=== PATIENT | male | born 1955 | race African-American/Black ===

== ENCOUNTER 2018-01-17 10:52 | Emergency (ER) | payer OTHER ==
[~2018-01-17] VITALS: Ht 167.6 cm; Wt 75.0 kg
[2018-01-17] MEDS ORDERED: IOHEXOL 350 MG/ML 10 ML VIAL (for RAD DIAG) IVCONTRAST ONE (10:53)
[2018-01-17 10:58] VITALS: BP 178/89; PULSE 103; RESP 18; TEMP 98.4; O2SAT 100
[2018-01-17] MEDS ORDERED: SODIUM CHLOR 0.9% 1000 ML INJ 1,000 ML IV SCH (11:11)
--- NOTE | 2018-01-17 11:12 | PD ---
HPI Chief Complaint: GI Complaint Time Seen by Provider: 11:06 Travel History International Travel<30 days: No Contact w/Intl Traveler<30days: No Traveled to known affect area: No History of Present Illness HPI 62-year-old male presents emergency department for evaluation of epigastric and left upper quadrant pain worsening over the last 2 days. Patient has had associated nausea and vomiting. He states he is unable to keep anything down. Pain is constant, burning, intermittently sharp. Patient does report alcohol consumption. Denies any recent illnesses, fever, or chills. He has no other symptoms to report. [facility] Past Medical History Medical History: Denies Significant Hx Social History Alcohol Use: Yes Tobacco Use: Yes Allergies-Medications (Allergen,Severity, Reaction): Coded Allergies: No Known Allergies (Unverified , 01/17/18) Reported Meds & Prescriptions Reported Meds & Active Scripts Active Reported Aspirin 81 Mg Chew 81 Mg CHEW DAILY [Gerd Med ] Norvasc (Amlodipine Besylate) 10 Mg Tab 10 Mg PO DAILY Review of Systems Except as stated in HPI: all other systems reviewed are Neg Physical Exam Narrative GENERAL: Well-nourished male patient in no acute distress SKIN: Focused skin assessment warm/dry. HEAD: Atraumatic. Normocephalic. EYES: Pupils equal and round. No scleral icterus. No injection or drainage. ENT: No nasal bleeding or discharge. Mucous membranes pink and moist. NECK: Trachea midline. No JVD. CARDIOVASCULAR: Regular rate and rhythm. No murmur appreciated. RESPIRATORY: No accessory muscle use. Clear to auscultation. Breath sounds equal bilaterally. GASTROINTESTINAL: Abdomen soft, nondistended. Tenderness elicited palpation left upper quadrant. Mild guarding. No rebound tenderness. Hepatic and splenic margins not palpable. MUSCULOSKELETAL: No obvious deformities. No clubbing. No cyanosis. No edema. NEUROLOGICAL: Awake and alert. No obvious cranial nerve deficits. Motor grossly within normal limits. Normal speech. PSYCHIATRIC: Appropriate mood and affect; insight and judgment normal. Data Data Last Documented VS Vital Signs Date Time Temp Pulse Resp B/P (MAP) Pulse Ox O2 Delivery O2 Flow Rate FiO2 01/17/18 13:00 89 17 170/88 (115) 98 Room Air 01/17/18 10:58 98.4 Orders Orders Complete Blood Count With Diff (01/17/18 11:11) Comprehensive Metabolic Panel (01/17/18 11:11) Lipase (01/17/18 11:11) Prothrombin Time / Inr (Pt) (01/17/18 11:11) Act Partial Throm Time (Ptt) (01/17/18 11:11) Urinalysis - C+S If Indicated (01/17/18 11:11) Ct Abd/Pel W Iv Contrast(Rout) (01/17/18 11:11) Iv Access Insert/Monitor (01/17/18 11:11) Ecg Monitoring (01/17/18 11:11) Oximetry (01/17/18 11:11) Ondansetron Inj (Zofran Inj) (01/17/18 11:15) Sodium Chlor 0.9% 1000 Ml Inj (Ns 1000 M (01/17/18 11:11) Sodium Chloride 0.9% Flush (Ns Flush) (01/17/18 11:15) Ketorolac Inj (Toradol Inj) (01/17/18 11:15) Iohexol 350 Inj (Omnipaque 350 Inj) (01/17/18 10:53) Labs Laboratory Tests Test 01/17/18 11:20 01/17/18 13:15 White Blood Count 7.7 TH/MM3 Red Blood Count 4.60 MIL/MM3 Hemoglobin 14.3 GM/DL Hematocrit 41.7 % Mean Corpuscular Volume 90.6 FL Mean Corpuscular Hemoglobin 31.0 PG Mean Corpuscular Hemoglobin Concent 34.2 % Red Cell Distribution Width 15.8 % Platelet Count 151 TH/MM3 Mean Platelet Volume 8.8 FL Neutrophils (%) (Auto) 88.4 % Lymphocytes (%) (Auto) 7.3 % Monocytes (%) (Auto) 4.2 % Eosinophils (%) (Auto) 0.0 % Basophils (%) (Auto) 0.1 % Neutrophils # (Auto) 6.8 TH/MM3 Lymphocytes # (Auto) 0.6 TH/MM3 Monocytes # (Auto) 0.3 TH/MM3 Eosinophils # (Auto) 0.0 TH/MM3 Basophils # (Auto) 0.0 TH/MM3 CBC Comment DIFF FINAL Differential Comment Prothrombin Time 11.0 SEC Prothromb Time International Ratio 1.1 RATIO Activated Partial Thromboplast Time 27.3 SEC Blood Urea Nitrogen 6 MG/DL Creatinine 0.85 MG/DL Random Glucose 181 MG/DL Total Protein 8.9 GM/DL Albumin 3.6 GM/DL Calcium Level 9.2 MG/DL Alkaline Phosphatase 173 U/L Aspartate Amino Transf (AST/SGOT) 56 U/L Alanine Aminotransferase (ALT/SGPT) 42 U/L Total Bilirubin 0.6 MG/DL Sodium Level 135 MEQ/L Potassium Level 3.6 MEQ/L Chloride Level 100 MEQ/L Carbon Dioxide Level 24.9 MEQ/L Anion Gap 10 MEQ/L Estimat Glomerular Filtration Rate 111 ML/MIN Lipase 648 U/L Urine Color LIGHT-YELLOW Urine Turbidity CLEAR Urine pH 6.5 Urine Specific [place] 1.007 Urine Protein TRACE mg/dL Urine Glucose (UA) NEG mg/dL Urine Ketones NEG mg/dL Urine Occult Blood NEG Urine Nitrite NEG Urine Bilirubin NEG Urine Urobilinogen LESS THAN 2.0 MG/DL Urine Leukocyte Esterase NEG Urine RBC LESS THAN 1 /hpf Urine WBC 1 /hpf Urine Squamous Epithelial Cells <1 /hpf Urine Mucus FEW /lpf Microscopic Urinalysis Comment CULT NOT INDICATED MDM Medical Decision Making Medical Screen Exam Complete: Yes Emergency Medical Condition: Yes Medical Record Reviewed: Yes Differential Diagnosis Pancreatitis versus cholecystitis versus gastritis Narrative Course 62-year-old male presents emergency department for evaluation of epigastric and left upper quadrant pain. Patient appears overall well. He does have left upper quadrant tenderness to palpation. CBC is without acute concern. CMP is also without acute concern. Lipase is moderately elevated at 648. CT imaging of the abdomen and pelvis is complete. Laboratory Tests Test 01/17/18 11:20 01/17/18 13:15 White Blood Count 7.7 TH/MM3 Red Blood Count 4.60 MIL/MM3 Hemoglobin 14.3 GM/DL Hematocrit 41.7 % Mean Corpuscular Volume 90.6 FL Mean Corpuscular Hemoglobin 31.0 PG Mean Corpuscular Hemoglobin Concent 34.2 % Red Cell Distribution Width 15.8 % Platelet Count 151 TH/MM3 Mean Platelet Volume 8.8 FL Neutrophils (%) (Auto) 88.4 % Lymphocytes (%) (Auto) 7.3 % Monocytes (%) (Auto) 4.2 % Eosinophils (%) (Auto) 0.0 % Basophils (%) (Auto) 0.1 % Neutrophils # (Auto) 6.8 TH/MM3 Lymphocytes # (Auto) 0.6 TH/MM3 Monocytes # (Auto) 0.3 TH/MM3 Eosinophils # (Auto) 0.0 TH/MM3 Basophils # (Auto) 0.0 TH/MM3 CBC Comment DIFF FINAL Differential Comment Prothrombin Time 11.0 SEC Prothromb Time International Ratio 1.1 RATIO Activated Partial Thromboplast Time 27.3 SEC Blood Urea Nitrogen 6 MG/DL Creatinine 0.85 MG/DL Random Glucose 181 MG/DL Total Protein 8.9 GM/DL Albumin 3.6 GM/DL Calcium Level 9.2 MG/DL Alkaline Phosphatase 173 U/L Aspartate Amino Transf (AST/SGOT) 56 U/L Alanine Aminotransferase (ALT/SGPT) 42 U/L Total Bilirubin 0.6 MG/DL Sodium Level 135 MEQ/L Potassium Level 3.6 MEQ/L Chloride Level 100 MEQ/L Carbon Dioxide Level 24.9 MEQ/L Anion Gap 10 MEQ/L Estimat Glomerular Filtration Rate 111 ML/MIN Lipase 648 U/L Urine Color LIGHT-YELLOW Urine Turbidity CLEAR Urine pH 6.5 Urine Specific [place] 1.007 Urine Protein TRACE mg/dL Urine Glucose (UA) NEG mg/dL Urine Ketones NEG mg/dL Urine Occult Blood NEG Urine Nitrite NEG Urine Bilirubin NEG Urine Urobilinogen LESS THAN 2.0 MG/DL Urine Leukocyte Esterase NEG Urine RBC LESS THAN 1 /hpf Urine WBC 1 /hpf Urine Squamous Epithelial Cells <1 /hpf Urine Mucus FEW /lpf Microscopic Urinalysis Comment CULT NOT INDICATED Last Impressions Abdomen/Pelvis CT 01/17/18 1111 Signed Impressions: Service Date/Time: Wednesday, January 17, 2018 13:43 - CONCLUSION: 1. Edema adjacent to the pancreatic head suggesting acute pancreatitis in the proper clinical setting. No organized peripancreatic fluid collections or nonenhancing parenchyma. 2. Diffuse marked dilatation of the pancreatic duct. 3. Diffuse nodularity of the liver capsule indicating cirrhosis. 4. Enlarged prostate. Vito Barajas MD Findings are discussed with my attending physician. We feel would be best for the patient to be admitted for pancreatitis. Plan is discussed with patient he does not want to stay in the hospital. AMA: The risks of leaving against medical advice without further evaluation treatment were discussed with the patient. These risks include cardiac dysfunction, cardiac dysrhythmia, possible heart attack, possible stroke or . The patient indicated understanding of these risks and appeared to have the capacity to make this decision. Diagnosis Primary Impression: Pancreatitis Disposition: 07 AGAINST MEDICAL ADVICE Condition: Stable Ivana Walters January 17, 2018 11:12
[2018-01-17] MEDS ORDERED: SODIUM CHLORIDE 0.9% FLUSH 10 ML FLUSH IV FLUSH PRN (11:15)
[2018-01-17] MEDS ORDERED: ONDANSETRON HCL 4 MG/2 ML VIAL IVP ONE (11:15)
[2018-01-17] MEDS ORDERED: KETOROLAC TROMETHAMINE 30 MG/ML (IVP) VIAL IVP ONE (11:15)
[2018-01-17 11:37] VITALS: O2SAT 98
[2018-01-17] MEDS ORDERED: AMLO10 PO (11:44)
[2018-01-17] MEDS ORDERED: GERD MED (11:44)
[2018-01-17] MEDS ORDERED: ASPI-516 CHEW (11:44)
[2018-01-17 12:00] LABS: AUTOMATED NEUTROPHIL # 6.8 TH/MM3 (1.8-7.7); BASOPHIL % 0.1 % (0.0-2.0); HEMATOCRIT 41.7 % (39.0-51.0); HEMOGLOBIN 14.3 GM/DL (13.0-17.0); LYMPH % 7.3 % (9.0-44.0); LYMPHOCYTE # 0.6 TH/MM3 (1.0-4.8); MEAN CELL VOLUME 90.6 FL (80.0-100.0); MEAN CORPUSCULAR HGB CONC 34.2 % (32.0-36.0); MEAN PLATELET VOLUME 8.8 FL (7.0-11.0); MONO % 4.2 % (0.0-8.0); MONOCYTE # 0.3 TH/MM3 (0-0.9); NEUT % 88.4 % (16.0-70.0); PLATELET COUNT 151 TH/MM3 (150-450); RED CELL DISTRIBUTION WIDTH 15.8 % (11.6-17.2); WHITE BLOOD COUNT 7.7 TH/MM3 (4.0-11.0)
[2018-01-17 12:09] LABS: INTERNATIONAL NORMALIZED RATIO 1.1 RATIO
[2018-01-17 12:19] LABS: ALT (GPT) 42 U/L (12-78)
[2018-01-17 12:22] LABS: ALKALINE PHOSPHATASE 173 U/L (45-117); TOTAL BILIRUBIN ADULT 0.6 MG/DL (0.2-1.0); TOTAL PROTEIN 8.9 GM/DL (6.4-8.2)
[2018-01-17 12:37] LABS: ALBUMIN 3.6 GM/DL (3.4-5.0); AST (GOT) 56 U/L (15-37); BICARBONATE 24.9 MEQ/L (21.0-32.0); BLOOD UREA NITROGEN 6 MG/DL (7-18); CALCIUM 9.2 MG/DL (8.5-10.1); CHLORIDE 100 MEQ/L (98-107); CREATININE 0.85 MG/DL (0.60-1.30); GLOMERULAR FILTRATION RATE 111 ML/MIN (>89); GLUCOSE,RANDOM 181 MG/DL (74-106); SODIUM (NA) 135 MEQ/L (136-145)
[2018-01-17 13:00] VITALS: BP 170/88; PULSE 89; RESP 17; O2SAT 98
[2018-01-17 13:38] LABS: BILIRUBIN, URINE NEG (NEG); BLOOD, URINE NEG (NEG); GLUCOSE,URINE NEG (NEG); KETONE, URINE NEG (NEG); MUCUS URINE FEW /lpf (OCC); NITRITE,URINE NEG (NEG); PH, URINE 6.5 (5.0-8.5); SQUAMOUS EPITHELIAL CELL URINE <1 /hpf (0-5); URINE COLOR LIGHT-YELLOW (YELLW/STRAW); URINE LEUKOCYTE ESTERASE NEG (NEG)
--- NOTE | 2018-01-17 14:07 | RADRPT ---
EXAM DATE/TIME: 01/17/2018 13:43 [facility] COMPARISON: No previous studies available for comparison. INDICATIONS : Epigastric pain with nausea and constipation. IV CONTRAST: 82 cc Omnipaque 350 (iohexol) IV ORAL CONTRAST: No oral contrast ingested. RADIATION DOSE: 6.57 CTDIvol (mGy) MEDICAL HISTORY : Non-responsive. SURGICAL HISTORY : Non-responsive. ENCOUNTER: Initial ACUITY: 1 day PAIN SCALE: 6/10 LOCATION: Bilateral upper quadrant TECHNIQUE: Volumetric scanning of the abdomen and pelvis was performed. Using automated exposure control and ad justment of the mA and/or kV according to patient size, radiation dose was kept as low as reasonably achievable to obtain optimal diagnostic quality images. DICOM format image data is available electro nically for review and comparison. FINDINGS: LOWER LUNGS: The visualized lower lungs are clear. LIVER: Diffuse nodularity of the liver capsule indicating cirrhosis. No focal mass identified. Trace fluid i n the gallbladder fossa. Mild nonspecific gallbladder wall thickening. SPLEEN: Normal size without lesion. PANCREAS: Diffuse dilatation of the pancreatic duct measuring up to 1 cm in diameter. Ill-defined edema in the fat adjacent to the pancreatic head indicating acute pancreatitis. No organized fluid collections. KIDNEYS: 4 cm nonenhancing cyst in the lower pole of the left kidney. No evidence of hydronephrosis. ADRENAL GLANDS: Within normal limits. VASCULAR: There is no aortic aneurysm. BOWEL/MESENTERY: No evidence of bowel dilatation. No free air or free fluid. Appendix within normal limits. ABDOMINAL WALL: Within normal limits. RETROPERITONEUM: There is no lymphadenopathy. BLADDER: No wall thickening or mass. REPRODUCTIVE: Enlarged prostate measuring 5 cm in transverse dimension. INGUINAL: There is no lymphadenopathy or hernia. MUSCULOSKELETAL: Old posterior right rib fractures. CONCLUSION: 1. Edema adjacent to the pancreatic head suggesting acute pancreatitis in the proper clinical setting . No organized peripancreatic fluid collections or nonenhancing parenchyma. 2. Diffuse marked dilatation of the pancreatic duct. 3. Diffuse nodularity of the liver capsule indicating cirrhosis. 4. Enlarged prostate. Vito Barajas MD on January 17, 2018 at 13:59 Board Certified Radiologist. This report was verified electronically.
== END 2018-01-17 15:03 | disposition left against medical advice (07) ==
LOC: NEPC 10:52
DX: K85.90 Acute pancreatitis without necrosis or infection, unspecified (principal)
CPT/HCPCS: 74177; 80053; 81001; 83690; 85025; 85610; 85730; 96361; 96374; 96375; 99284; J1885; J2405; J7030; Q9967

== ENCOUNTER 2018-01-30 12:37 | Emergency (ER) | payer OTHER ==
[~2018-01-30] VITALS: Ht 167.6 cm; Wt 75.0 kg
[~2018-01-30 12:37] MED LIST: AMLO10 PO; ASPI-516 CHEW; GERD MED
[2018-01-30 12:41] VITALS: BP 157/74; PULSE 97; RESP 18; TEMP 98.9; O2SAT 99
[2018-01-30] MEDS ORDERED: KETOROLAC TROMETHAMINE 60 MG/2 ML (IM) VIAL IM ONE (13:30)
[2018-01-30] MEDS ORDERED: TETANUS/DIPHTHERIA TOXOID ADULT 0.5 ML VIAL IM ONE (13:30)
[2018-01-30] MEDS ORDERED: OMEGCAP PO (13:48)
[2018-01-30] MEDS ORDERED: VITA1000 PO (13:48)
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
--- NOTE | 2018-01-30 14:33 | RADRPT ---
EXAM DATE/TIME: 01/30/2018 13:57 [facility] COMPARISON: No previous studies available for comparison. INDICATIONS : Right leg swelling. MEDICAL HISTORY : Hypertension. SURGICAL HISTORY : Finger surgery. Testicle surgery. ENCOUNTER: Initial ACUITY: 1 week PAIN SCORE: 3/10 LOCATION: Right leg. TECHNIQUE: Venous ultrasound of the leg was performed from the inguinal ligament to the proximal calf. Real-jose e, color Doppler and spectral tracing, compression and augmentation techniques were used. FINDINGS: There is normal compressibility of the deep venous system from the inguinal region to the proximal ca lf. No echogenic clot is seen in the lumen of the common femoral, femoral, popliteal, and posterior tibial veins. There is a normal response of the venous system to proximal and distal augmentation an d respiration. CONCLUSION: 1. No sonographic evidence for right lower extremity DVT. Frank Hanna MD on January 30, 2018 at 14:31 Board Certified Radiologist. This report was verified electronically.
[2018-01-30 14:57] VITALS: RESP 18
[2018-01-30 15:56] VITALS: BP 152/78
== END 2018-01-30 16:01 | disposition home or self-care (01) ==
LOC: NEPD 12:37
DX: S81.801A Unspecified open wound, right lower leg, initial encounter (principal); I10 Essential (primary) hypertension; M79.89 Other specified soft tissue disorders; W34.00XA Accidental discharge from unspecified firearms or gun, initial encounter; F12.90 Cannabis use, unspecified, uncomplicated; Z23 Encounter for immunization; Z72.0 Tobacco use
CPT/HCPCS: 73590; 90471; 90714; 93971; 96372; 99284; J1885